=== PATIENT | male | born 1940 | race Caucasian/White ===

== ENCOUNTER 2020-06-05 14:03 | Inpatient (IN) | payer MEDICARE ==
[~2020-06-05] VITALS: Ht 175.3 cm; Wt 72.6 kg
[2020-06-05 14:27] LABS: BASOPHILS # (AUTO) 0.1 (0.0-0.1); BASOPHILS % 0.3 % (0.0-1.0); EOSINOPHILS % 0.1 % (0.0-6.0); HEMOGLOBIN 11.9 g/dL (14.0-18.0); LYMPHOCYTES # (AUTO) 0.8 (1.0-3.2); LYMPHOCYTES % 4.8 % (18.0-39.1); MEAN CORPUSCULAR HEMOGLOBIN 31.6 pg (28-32); MEAN CORPUSCULAR HGB CONC 33.1 g/dL (31-35); MEAN CORPUSCULAR VOLUME 95.5 fL (81-99); MONOCYTES # (AUTO) 1.1 (0.2-0.8); MONOCYTES % 6.7 % (4.4-11.3); NEUTROPHILS # (AUTO) 13.9 (2.1-6.9); NEUTROPHILS % 87.6 % (38.7-80.0); PLATELET COUNT 294 x10e3/uL (140-360); RED BLOOD COUNT 3.77 x10e6/uL (4.3-5.7); RED CELL DISTRIBUTION WIDTH 12.9 % (11.7-14.4)
[2020-06-05 15:02] LABS: ALANINE AMINOTRANSFERASE 14 IU/L (0-55); ALBUMIN 3.6 g/dL (3.5-5.0); ALBUMIN/GLOBULIN RATIO 1.1 (0.8-2.0); ALKALINE PHOSPHATASE 82 IU/L (40-150); ANION GAP 15.2 mmol/L (8-16); BLOOD UREA NITROGEN 22 mg/dL (7-26); BUN/CREATININE RATIO 24 (6-25); CALCIUM 9.1 mg/dL (8.4-10.2); CARBON DIOXIDE 26 mmol/L (22-29); CHLORIDE 105 mmol/L (98-107); CREATINE KINASE 182 IU/L (30-200); CREATININE, SERUM 0.92 mg/dL (0.72-1.25); EST GLOMERULAR FILTRATION RATE > 60 ML/MIN (60-); GLUCOSE 117 mg/dL (74-118); POTASSIUM 4.2 mmol/L (3.5-5.1); SODIUM 142 mmol/L (136-145)
[2020-06-05] MEDS ORDERED: CEFEPIME 1GM/NS 0.9% 50 ML 50 ML IV STA (15:34)
[2020-06-05 16:07] LABS: CLARITY,URINE HAZY (CLEAR); COLOR,URINE YELLOW (YELLOW)
[2020-06-05 16:08] LABS: BILIRUBIN,URINE SMALL (NEGATIVE); KETONES,URINE 1+ (NEGATIVE); LEUKOCYTE ESTERASE ,URINE NEGATIVE (NEGATIVE); NITRITE,URINE NEGATIVE (NEGATIVE); PROTEIN,URINE DIPSTICK TRACE (NEGATIVE); URINE UROBILINOGEN 0.2 mg/dL (0.2 - 1)
[2020-06-05 16:15] LABS: BACTERIA,URINE FEW /HPF; EPITHELIAL CELLS,URINE FEW /LPF; RBC,URINE 0-5 /HPF (0-5)
[2020-06-05] MEDS: SODIUM CHLORIDE 0.9% 1000ML 1,000 ML IV SCH ×2 (16:58→19:26)
[2020-06-05] MEDS ORDERED: CARBIDOPA-LEVO1 EAC2 (17:00)
[2020-06-05 18:20] VITALS: BP 132/92
[2020-06-05 18:24] VITALS: BP 132/92
[2020-06-05 18:36] VITALS: BP 132/92
[2020-06-05] MEDS ORDERED: ATENOLOL50 MG PO (18:52)
[2020-06-05] MEDS ORDERED: SINEMET 25-1001 EACH PO (18:52)
[2020-06-05 20:00] VITALS: BP 130/88
[2020-06-05] MEDS: CARBIDOPA/LEVODOPA 25/100 TAB PO SCH (21:30)
[2020-06-05] MEDS: ATENOLOL 50 MG TAB PO SCH (21:30)
[2020-06-05] MEDS ORDERED: HYDRALAZINE HCL 20 MG/ML VIAL IV PRN (22:30)
[2020-06-05] MEDS ORDERED: POLYETHYLENE GLYCOL 3350 17 GM PACK PO PRN (22:30)
[2020-06-05] MEDS ORDERED: DOCUSATE SODIUM 100 MG CAP PO PRN (22:30)
[2020-06-05] MEDS ORDERED: GUAIFENESIN/CODEINE 10 ML CUP PO PRN (22:30)
[2020-06-05] MEDS ORDERED: ACETAMINOPHEN 325 MG TAB PO PRN (22:30)
[2020-06-05] MEDS ORDERED: DEXTROSE 50% SYRINGE 50 ML IV PRN (22:30)
[2020-06-05] MEDS ORDERED: ONDANSETRON HCL INJ 2MG/ML 2ML 2 MG/ML VIAL IV PRN (22:30)
[2020-06-05] MEDS ORDERED: MELATONIN 5 MG TABLET PO PRN (22:30)
[2020-06-05 22:37] VITALS: BP 130/88
[2020-06-05 23:17] LABS: CREATINE KINASE MB 4.1 ng/mL (0-5.0)
[2020-06-06] VITALS (8 sets, daily range): BP systolic 111–138; BP diastolic 64–90
[2020-06-06 05:37] LABS: BASOPHILS # (AUTO) 0.1 (0.0-0.1); BASOPHILS % 0.6 % (0.0-1.0); EOSINOPHILS # (AUTO) 0.1 (0.0-0.4); EOSINOPHILS % 0.4 % (0.0-6.0); HEMATOCRIT 35.3 % (38.2-49.6); HEMOGLOBIN 11.5 g/dL (14.0-18.0); LYMPHOCYTES % 8.6 % (18.0-39.1); MEAN CORPUSCULAR HEMOGLOBIN 31.8 pg (28-32); MEAN CORPUSCULAR HGB CONC 32.6 g/dL (31-35); MEAN CORPUSCULAR VOLUME 97.5 fL (81-99); MONOCYTES # (AUTO) 1.1 (0.2-0.8); MONOCYTES % 9.6 % (4.4-11.3); NEUTROPHILS # (AUTO) 8.9 (2.1-6.9); NEUTROPHILS % 80.3 % (38.7-80.0); PLATELET COUNT 279 x10e3/uL (140-360); RED BLOOD COUNT 3.62 x10e6/uL (4.3-5.7)
[2020-06-06 06:11] LABS: ALANINE AMINOTRANSFERASE 10 IU/L (0-55); ALBUMIN 3.3 g/dL (3.5-5.0); ALKALINE PHOSPHATASE 75 IU/L (40-150); ANION GAP 11.9 mmol/L (8-16); BLOOD UREA NITROGEN 22 mg/dL (7-26); BUN/CREATININE RATIO 27 (6-25); CALCIUM 8.5 mg/dL (8.4-10.2); CARBON DIOXIDE 27 mmol/L (22-29); CHLORIDE 106 mmol/L (98-107); CREATININE, SERUM 0.83 mg/dL (0.72-1.25); EST GLOMERULAR FILTRATION RATE > 60 ML/MIN (60-); GLUCOSE 86 mg/dL (74-118); POTASSIUM 3.9 mmol/L (3.5-5.1); SODIUM 141 mmol/L (136-145)
[2020-06-06 06:35] LABS: CREATINE KINASE MB 5.6 ng/mL (0-5.0)
[2020-06-06] MEDS: ATENOLOL 50 MG TAB PO SCH (08:32)
[2020-06-06] MEDS: CARBIDOPA/LEVODOPA 25/100 TAB PO SCH ×5 (08:32→21:00)
[2020-06-06] MEDS: PANTOPRAZOLE SOD 40 MG TABEC PO SCH (08:32)
[2020-06-06] MEDS: ASPIRIN 81 MG ENTERIC COATED PO SCH (10:19)
[2020-06-06] MEDS: RASAGILINE 1 MG TAB PO SCH (10:19)
[2020-06-06] MEDS: BALSAM PERU/CASTOR OIL 60 GM OINT...G. TP SCH (11:00)
[2020-06-06] MEDS: SODIUM CHLORIDE 0.9% 1000ML 1,000 ML IV SCH (11:48)
[2020-06-06 13:15] LABS: CREATINE KINASE MB 5.3 ng/mL (0-5.0)
[2020-06-06] MEDS: DEXTROSE 5%/0.9% SOD CHL 1,000 ML IV SCH (14:51)
[2020-06-06] MEDS: ENOXAPARIN SOD INJ 40 MG/0.4 ML SYR SC SCH (17:05)
[2020-06-06] MEDS: VANCOMYCIN 1GM/NS 250 ML 250 ML IV SCH (17:53)
[2020-06-07] VITALS (8 sets, daily range): BP systolic 123–161; BP diastolic 55–83
[2020-06-07] MEDS: DEXTROSE 5%/0.9% SOD CHL 1,000 ML IV SCH ×2 (06:27→16:40)
[2020-06-07] MEDS: VANCOMYCIN 1GM/NS 250 ML 250 ML IV SCH ×2 (06:27→17:37)
[2020-06-07] MEDS: PANTOPRAZOLE SOD 40 MG TABEC PO SCH (07:30)
[2020-06-07] MEDS: RASAGILINE 1 MG TAB PO SCH (08:37)
[2020-06-07] MEDS: ASPIRIN 81 MG ENTERIC COATED PO SCH (08:37)
[2020-06-07] MEDS: ATENOLOL 50 MG TAB PO SCH (08:37)
[2020-06-07] MEDS: CARBIDOPA/LEVODOPA 25/100 TAB PO SCH ×4 (08:37→20:14)
[2020-06-07] MEDS: BALSAM PERU/CASTOR OIL 60 GM OINT...G. TP SCH (08:38)
[2020-06-07 09:22] LABS: BASOPHILS # (AUTO) 0.1 (0.0-0.1); BASOPHILS % 0.8 % (0.0-1.0); EOSINOPHILS # (AUTO) 0.1 (0.0-0.4); EOSINOPHILS % 1.7 % (0.0-6.0); HEMATOCRIT 34.4 % (38.2-49.6); HEMOGLOBIN 11.1 g/dL (14.0-18.0); MEAN CORPUSCULAR HGB CONC 32.3 g/dL (31-35); MEAN CORPUSCULAR VOLUME 99.1 fL (81-99); MONOCYTES # (AUTO) 0.9 (0.2-0.8); MONOCYTES % 11.3 % (4.4-11.3); NEUTROPHILS # (AUTO) 5.6 (2.1-6.9); NEUTROPHILS % 72.9 % (38.7-80.0); PLATELET COUNT 240 x10e3/uL (140-360); RED BLOOD COUNT 3.47 x10e6/uL (4.3-5.7); RED CELL DISTRIBUTION WIDTH 12.7 % (11.7-14.4)
[2020-06-07 09:53] LABS: ALANINE AMINOTRANSFERASE 14 IU/L (0-55); ALBUMIN 2.9 g/dL (3.5-5.0); ALBUMIN/GLOBULIN RATIO 0.9 (0.8-2.0); ALKALINE PHOSPHATASE 59 IU/L (40-150); ANION GAP 10.5 mmol/L (8-16); BLOOD UREA NITROGEN 23 mg/dL (7-26); BUN/CREATININE RATIO 29 (6-25); CALCIUM 8.2 mg/dL (8.4-10.2); CARBON DIOXIDE 26 mmol/L (22-29); CHLORIDE 109 mmol/L (98-107); EST GLOMERULAR FILTRATION RATE > 60 ML/MIN (60-); GLUCOSE 100 mg/dL (74-118); POTASSIUM 3.5 mmol/L (3.5-5.1); SODIUM 142 mmol/L (136-145)
[2020-06-07] MEDS: ENOXAPARIN SOD INJ 40 MG/0.4 ML SYR SC SCH (17:37)
[2020-06-07] MEDS: PERIPHERAL TPN FORMULA 1 BAG IV SCH (20:37)
[2020-06-08] VITALS (8 sets, daily range): BP systolic 102–164; BP diastolic 56–91
[2020-06-08] MEDS: DEXTROSE 5%/0.9% SOD CHL 1,000 ML IV SCH (06:00)
[2020-06-08] MEDS: VANCOMYCIN 1GM/NS 250 ML 250 ML IV SCH (07:01)
[2020-06-08] MEDS: PANTOPRAZOLE SOD 40 MG TABEC PO SCH ×2 (07:30→13:18)
[2020-06-08 08:33] LABS: ALANINE AMINOTRANSFERASE 15 IU/L (0-55); ALBUMIN 2.8 g/dL (3.5-5.0); ALBUMIN/GLOBULIN RATIO 0.8 (0.8-2.0); ALKALINE PHOSPHATASE 55 IU/L (40-150); ANION GAP 11.9 mmol/L (8-16); BLOOD UREA NITROGEN 20 mg/dL (7-26); BUN/CREATININE RATIO 27 (6-25); CALCIUM 8.2 mg/dL (8.4-10.2); CARBON DIOXIDE 23 mmol/L (22-29); CHLORIDE 108 mmol/L (98-107); CREATININE, SERUM 0.75 mg/dL (0.72-1.25); EST GLOMERULAR FILTRATION RATE > 60 ML/MIN (60-); GLUCOSE 114 mg/dL (74-118); MAGNESIUM 1.8 MG/DL (1.3-2.1); PHOSPHORUS 2.6 MG/DL (2.3-4.7); POTASSIUM 3.9 mmol/L (3.5-5.1); SODIUM 139 mmol/L (136-145)
[2020-06-08] MEDS: ASPIRIN 81 MG ENTERIC COATED PO SCH ×2 (09:00→13:18)
[2020-06-08] MEDS: ATENOLOL 50 MG TAB PO SCH ×2 (09:00→13:19)
[2020-06-08] MEDS: RASAGILINE 1 MG TAB PO SCH ×2 (09:00→13:18)
[2020-06-08] MEDS: CARBIDOPA/LEVODOPA 25/100 TAB PO SCH ×4 (09:00→21:38)
[2020-06-08] MEDS: BALSAM PERU/CASTOR OIL 60 GM OINT...G. TP SCH (10:00)
[2020-06-08] MEDS: ENOXAPARIN SOD INJ 40 MG/0.4 ML SYR SC SCH (17:24)
[2020-06-08] MEDS: PERIPHERAL TPN FORMULA 1 BAG IV SCH (21:00)
[2020-06-09] VITALS (7 sets, daily range): BP systolic 123–168; BP diastolic 63–88
[2020-06-09 06:04] LABS: ANION GAP 10.8 mmol/L (8-16); BLOOD UREA NITROGEN 20 mg/dL (7-26); BUN/CREATININE RATIO 27 (6-25); CALCIUM 8.2 mg/dL (8.4-10.2); CARBON DIOXIDE 25 mmol/L (22-29); CHLORIDE 106 mmol/L (98-107); CREATININE, SERUM 0.75 mg/dL (0.72-1.25); EST GLOMERULAR FILTRATION RATE > 60 ML/MIN (60-); GLUCOSE 116 mg/dL (74-118); MAGNESIUM 1.9 MG/DL (1.3-2.1); PHOSPHORUS 2.6 MG/DL (2.3-4.7); POTASSIUM 3.8 mmol/L (3.5-5.1); SODIUM 138 mmol/L (136-145)
[2020-06-09] MEDS: RASAGILINE 1 MG TAB PO SCH (09:40)
[2020-06-09] MEDS: CARBIDOPA/LEVODOPA 25/100 TAB PO SCH ×4 (09:40→21:26)
[2020-06-09] MEDS: BALSAM PERU/CASTOR OIL 60 GM OINT...G. TP SCH (09:40)
[2020-06-09] MEDS: PANTOPRAZOLE SOD 40 MG TABEC PO SCH (09:40)
[2020-06-09] MEDS: ATENOLOL 50 MG TAB PO SCH (09:40)
[2020-06-09] MEDS: ASPIRIN 81 MG ENTERIC COATED PO SCH (09:40)
[2020-06-09] MEDS ORDERED: LOPERAMIDE HCL 2 MG CAP PO PRN (11:30)
[2020-06-09] MEDS: ENOXAPARIN SOD INJ 40 MG/0.4 ML SYR SC SCH (17:56)
[2020-06-09] MEDS: PERIPHERAL TPN FORMULA 1 BAG IV SCH (21:00)
[2020-06-10] VITALS: BP 147/92
[2020-06-10 04:00] VITALS: BP 151/78
[2020-06-10 06:15] LABS: ALANINE AMINOTRANSFERASE 9 IU/L (0-55); ALBUMIN 3.1 g/dL (3.5-5.0); ALBUMIN/GLOBULIN RATIO 0.9 (0.8-2.0); ALKALINE PHOSPHATASE 64 IU/L (40-150); ANION GAP 9.7 mmol/L (8-16); BLOOD UREA NITROGEN 20 mg/dL (7-26); BUN/CREATININE RATIO 26 (6-25); CALCIUM 8.6 mg/dL (8.4-10.2); CARBON DIOXIDE 27 mmol/L (22-29); CHLORIDE 106 mmol/L (98-107); CREATININE, SERUM 0.76 mg/dL (0.72-1.25); EST GLOMERULAR FILTRATION RATE > 60 ML/MIN (60-); GLUCOSE 105 mg/dL (74-118); POTASSIUM 3.7 mmol/L (3.5-5.1); SODIUM 139 mmol/L (136-145)
[2020-06-10 06:25] LABS: MAGNESIUM 1.8 MG/DL (1.3-2.1); PHOSPHORUS 2.8 MG/DL (2.3-4.7)
[2020-06-10 08:26] VITALS: BP 172/97
[2020-06-10 08:53] VITALS: BP 172/97
[2020-06-10] MEDS: RASAGILINE 1 MG TAB PO SCH (09:35)
[2020-06-10] MEDS: CARBIDOPA/LEVODOPA 25/100 TAB PO SCH ×2 (09:35→14:20)
[2020-06-10] MEDS: ASPIRIN 81 MG ENTERIC COATED PO SCH (09:35)
[2020-06-10] MEDS: PANTOPRAZOLE SOD 40 MG TABEC PO SCH (09:35)
[2020-06-10] MEDS: ATENOLOL 50 MG TAB PO SCH (09:36)
[2020-06-10] MEDS: BALSAM PERU/CASTOR OIL 60 GM OINT...G. TP SCH (10:21)
[2020-06-10 12:19] VITALS: BP 105/71
[2020-06-10 16:14] VITALS: BP 138/73
== END 2020-06-10 15:53 | DRG 871 ==
LOC: ER 14:26 → ERHOLD 16:40 → MED/SURG2 17:19 → OBSVTOIN 06-07 12:40
PROVIDERS: ADMIT Internal Medicine; ATTEND Internal Medicine
DX: A41.9 Sepsis, unspecified organism (principal); J69.0 Pneumonitis due to inhalation of food and vomit; G93.41 Metabolic encephalopathy; M62.82 Rhabdomyolysis; E44.0 Moderate protein-calorie malnutrition; R64 Cachexia; G20 Parkinson's disease; W19.XXXA Unspecified fall, initial encounter; R13.10 Dysphagia, unspecified; I10 Essential (primary) hypertension; Z91.19 Patient's noncompliance with other medical treatment and regimen; R55 Syncope and collapse; Z68.23 Body mass index [BMI] 23.0-23.9, adult; R62.7 Adult failure to thrive; Z91.14 Patient's other noncompliance with medication regimen; Z66 Do not resuscitate; Z51.5 Encounter for palliative care
CPT/HCPCS: 36415; 70450; 71045; 74230; 80048; 80053; 80202; 81001; 82550; 82553; 82948; 83605; 83735; 84100; 84484; 85025; 87040; 87071; 87205; 93005; 93306; 93880; 95812; 96361; 96366; 97139; 99251; 99284; G0378; J0692; J1650; J3370; J7030; J7042; U0002